=== PATIENT | male | born 1960 | race Caucasian/White ===

== ENCOUNTER → 2018-02-27 21:30 | Outpatient (CLI) | payer OTHER, SELFPAY | PROVIDERS: Referring Provider Nurse Practitioner; Visit Provider Nurse Practitioner | DX: R39.15 Urgency of urination (principal) | CPT/HCPCS: 87086 ==

== ENCOUNTER → 2018-04-02 08:33 | Outpatient (CLI) | payer OTHER, SELFPAY ==
[2018-02-27 17:50] VITALS: BMI 31.3
[2018-03-31 13:47] LABS: Absolute Lymphocyte Count 1.17 X10^3/ul (0.83-4.51); Absolute Neutrophil Count 5.2 X10^3/uL (2.0-7.7); Basophil# 0.01 X10^3/uL; Basophil% 0.1 % (0-1); Eosinophil# 0.03 X10^3/uL; Eosinophils% 0.4 % (0-5); Hematocrit 52.5 % (40-54); Lymphocyte # 1.17 X10^3/ul (4.0); Lymphocyte % 16.7 % (19-41); Mean Corpuscular Hgb 34.5 pg (27.0-32.0); Mean Corpuscular Volume 98.3 fL (80-94); Mean Platelet Vol. 10.6 fl (6.2-12.0); Monocyte# 0.59 X10^3/uL; Monocyte% 8.4 % (0-10); Neutrophil % 74.1 % (47-70); Platelet Count 164 K/mm3 (150-450); RBC Distribution Width CV 13.7 % (11.6-14.6); RBC Distribution Width SD 49.6 fl (35.1-43.9); Red Blood Count 5.34 M/mm3 (4.6-6.2)
[2018-03-31 13:54] LABS: ALB/GLOB Ratio 1.1 RATIO (0.9-2.4); AST(SGOT) 34 U/L (15-37); Alanine Aminotransfer ALT/SGPT 45 U/L (16-61); Albumin, Serum 3.8 g/dL (3.2-5.0); Alkaline Phosphatase 39 U/L (45-117); Anion Gap 8 (5-15); BUN 16 mg/dL (7-18); Calcium,Total 8.8 mg/dL (8.5-10.1); Chloride 101 mmol/L (98-107); Cholesterol 161 mg/dL (200); Creatinine, Serum 1.14 mg/dL (0.70-1.30); EST Glomerular Filtration Rate 71 mL/min (>60); Est Glom Filt Rate - Afr Amer 85 mL/min (>60); Globulin 3.6 g/dL (2.2-4.2); Glucose 111 mg/dL (74-106); High Density Lipoprotein 43 mg/dL; Potassium 3.3 mmol/L (3.5-5.1); Protein, Total 7.4 g/dL (6.4-8.2); Sodium Level 138 mmol/L (136-145); Triglycerides 124 mg/dL; Very Low Density Lipoprotein 25 mg/dL (5-40)
[2018-03-31 14:49] LABS: Hemoglobin 18.4 g/dl (13.0-16.5); POSITIVE COUNT NO; POSITIVE DIFFERENTIAL NO; POSITIVE MORPHOLOGY NO
[2018-04-04 13:03] LABS: PSA, Total 3.3 ng/mL (0.0-4.0); Testosterone Free 22.4 pg/mL (7.2-24.0)
== END ==
PROVIDERS: Referring Provider Nurse Practitioner; Visit Provider Nurse Practitioner
DX: E29.1 Testicular hypofunction (principal); E78.5 Hyperlipidemia, unspecified
CPT/HCPCS: 80053; 80061; 84153; 84402; 85025

== ENCOUNTER → 2018-06-02 14:08 | Outpatient (CLI) | payer OTHER, SELFPAY ==
[2018-06-02 10:00] VITALS: BMI 31.3
[2018-06-02 14:21] LABS: Absolute Lymphocyte Count 1.52 X10^3/ul (0.83-4.51); Basophil# 0.02 X10^3/uL; Basophil% 0.2 % (0-1); Eosinophil# 0.06 X10^3/uL; Eosinophils% 0.7 % (0-5); Hematocrit 53.7 % (40-54); Lymphocyte # 1.52 X10^3/ul (4.0); Lymphocyte % 18.5 % (19-41); Mean Corp Hgb Conc 33.9 g/gl (32-36); Mean Corpuscular Hgb 34.1 pg (27.0-32.0); Mean Corpuscular Volume 100.8 fL (80-94); Mean Platelet Vol. 10.9 fl (6.2-12.0); Monocyte# 0.62 X10^3/uL; Monocyte% 7.6 % (0-10); Neutrophil # 5.96 X10^3/uL (2.7-7.7); Neutrophil % 72.6 % (47-70); Platelet Count 181 K/mm3 (150-450); RBC Distribution Width CV 13.9 % (11.6-14.6); RBC Distribution Width SD 51.6 fl (35.1-43.9); Red Blood Count 5.33 M/mm3 (4.6-6.2); White Blood Count 8.2 K/mm3 (4.4-11.0)
[2018-06-02 14:46] LABS: Hemoglobin 18.2 g/dl (13.0-16.5); POSITIVE COUNT NO; POSITIVE DIFFERENTIAL NO; POSITIVE MORPHOLOGY NO
[2018-06-06 13:22] LABS: PSA, Total 2.3 ng/mL (0.0-4.0); Testosterone Free 9.2 pg/mL (7.2-24.0)
--- OUTSIDE RECORDS SUMMARY | 2018-08-06 10:26 | XMS RPT_ITS ---
:1960 Author Organization OHIP Care Team Providers Name Role Phone Danial Doss Referring Unavailable Danial Doss Primary Care Unavailable Andrea De Luna Attending Unavailable Jed Pickett Attending Unavailable Danial Doss Referring Unavailable Danial Doss Primary Care Unavailable AYDE CURIEL Attending Unavailable Danial Doss Referring Unavailable Danial Doss Primary Care Unavailable AYDE CURIEL Attending Unavailable Danial Doss Referring Unavailable Danial Doss Primary Care Unavailable Connolly, Kala HEARING AID ASSEMBLY SUPERVISOR-C Attending Unavailable Connolly, Kala HEARING AID ASSEMBLY SUPERVISOR-C Referring Unavailable Connolly, Kala HEARING AID ASSEMBLY SUPERVISOR-C Attending Unavailable Connolly, Kala HEARING AID ASSEMBLY SUPERVISOR-C Referring Unavailable Connolly, Kala HEARING AID ASSEMBLY SUPERVISOR-C Attending Unavailable Connolly, Kala HEARING AID ASSEMBLY SUPERVISOR-C Referring Unavailable PROBLEMS PROBLEMS DATE TYPE CONDITION / CODE ATTENDING STATUS SOURCE 06/04/2018 Unknown 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, 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 / Kala HEARING AID ASSEMBLY SUPERVISOR-C Community E29.1(ICD-10) Hospital Repository 04/02/2018 Unknown E78.5 - Connolly, Active [place] Hyperlipidemia, Kala HEARING AID ASSEMBLY SUPERVISOR-C Community unspecified / Hospital E78.5(ICD-10) Repository 02/28/2018 Unknown R39.15 - Urgency Dav, Active [place] of urination / Kala HEARING AID ASSEMBLY SUPERVISOR-C Community R39.15(ICD-10) Hospital Repository 01/17/2018 Admitting Testicular AYDE CURIEL [facility] Diagnosis hypofunction / System E29.1(ICD-10) Repository 01/17/2018 Admitting Elevated prostate AYDE CURIEL [facility] Diagnosis specific antigen System [PSA] / Repository R97.20(ICD-10) 09/08/2017 Admitting Palpitations / Costantini, [facility] Diagnosis R00.2(ICD-10) [place] System Repository 09/08/2017 Admitting Paroxysmal atrial Costantini, [facility] Diagnosis fibrillation / [place] System I48.0(ICD-10) Repository 09/02/2017 Admitting Hypokalemia / Roter, [place] Diagnosis E87.6(ICD-10) System Repository 09/02/2017 Admitting Hyperlipidemia, Roter, [place] Diagnosis unspecified / System E78.5(ICD-10) Repository 09/02/2017 Admitting Essential [employer] Diagnosis (primary) System hypertension / Repository I10(ICD-10) 09/02/2017 Admitting Acquired absence [facility]er, [place] Diagnosis of other specified System parts of digestive Repository tract / Z90.49(ICD-10) 09/02/2017 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 Repository / Z79.52(ICD-10) 09/02/2017 Admitting care home [employer] Diagnosis (current) use of System aspirin / Repository Z79.82(ICD-10) 09/02/2017 Admitting Personal history [employer] Diagnosis of nicotine System dependence / Repository Z87.891(ICD-10) 09/02/2017 Admitting Cardiac [facility]er, [place] Diagnosis arrhythmia, System unspecified / Repository I49.9(ICD-10) PROCEDURES PROCEDURES No Procedure Records FoundRESULTS RESULTS OFFICE VISIT Observed: 06/04/2018 Status: F Source: [place] 8:37 PM [facility] [place] [facility] [address] [place] [address] OFFICE VISIT Date of Service: 06/02/18 MR#: [id number] Acct: [id number] Name: DERIK VOSS Rep #: [id number] : 1960 Provider: PHYLLIS Connolly Age/Sex: 58/M Location: [facility] Status: Signed Intake Vital Signs06/02/18 Body Mass Index (BMI) 31.3 Intake Visit Reasons: TESTOSTERONE BW Chief Complaint: productive cough in the am Allergies No Known Allergies Allergy (Verified 10/05/17 18:13) Medications aspirin 81 mg chewable tablet 81 mg PO QDAY 10/05/17 [History Confirmed 10/05/17] atorvastatin 20 mg tablet 20 mg PO QDAY 10/05/17 [History Confirmed 10/05/17] lisinopril 10 mg tablet 10 mg PO QDAY 10/05/17 [History Confirmed 10/05/17] ciprofloxacin 500 mg tablet 500 mg PO BID #14 tab 02/27/18 [Rx Confirmed 02/27/18] tamsulosin 0.4 mg capsule 0.4 mg PO DAILY #30 cap 02/27/18 [Rx Confirmed 02/27/18] Office Meds testosterone cypionate Performing Provider: FREDDY Rubalcava Administered by: Thi Haider on 06/02/18 10:00 Dose Route Admin Location Lot Number Expiration Date NDC Hydraulic Plumber 100 mg IM R ARM [id number] 12/14/19 7563-5519-03 [facility] Assessment AND Plan Orders Orders: Medications Discontinued: testosterone cypionate Discontinued Reason: Uhxryt547 mg (0.5 mL) IM ONCE #1 0RF E29.1 Medication has been Documented as given 06/04/182036 <Electronically signed by Kala HAYES> Date Kala HAYES CC: CBC W/DIFF, AUTOMATED Collected: 06/02/2018 Status: F Source: [place] 9:50 AM [facility] [place] TYPE CODE TESTS RESULT OUT OF RANGE REFERENCE UNITS LAB L100.1000 4.4-11.0 K/mm3 Normal WBC 8.2 LAB L100.1200 4.6-6.2 M/mm3 Normal RBC 5.33 LAB L100.1300 13.0-16.5 g/dl High alert HGB 18.2 Result Comment: RESULTS CALLED TO KALA CONNOLLY 06/02/18 1445 Marcia Carroll. REPORT READ BACK BY SAME. LAB L100.1400 40-54 % Normal HCT 53.7 LAB L100.1500 80-94 fL High MCV 100.8 LAB L100.1600 27.0-32.0 pg High MCH 34.1 LAB L100.1700 32-36 g/gl Normal MCHC 33.9 LAB L100.1810 11.6-14.6 % Normal RDW CV 13.9 LAB L100.1820 35.1-43.9 fl High RDW SD 51.6 LAB L100.1900 150-450 K/mm3 Normal PLT 181 LAB L100.2000 6.2-12.0 fl Normal MPV 10.9 LAB L100.2100 47-70 % High NEUT% 72.6 LAB L100.2200 19-41 % Low LY% 18.5 LAB L100.2300 0-10 % Normal MONO% 7.6 LAB L100.2400 0-5 % Normal EO% 0.7 LAB L100.2500 0-1 % Normal BASO% 0.2 LAB L100.2550 0.0-0.9 % Normal IM GRAN % 0.400 Result Comment: IG% - Immature Granulocytes (promyelocytes, myelocytes and metamyelocytes) > 1% indicates that a LEFT SHIFT is Present. LAB L100.2620 2.0-7.7 X10 3/uL Normal Absolute Neut 6.0 LAB L100.2720 0.83-4.51 X10 3/ul Normal Absolute Lymph 1.52 Performed By: #### L100.0100 #### [facility] [address] [place], [address] PSA TOTAL (RFLX Collected: 06/02/2018 Status: F Source: [place] FREE) 9:50 AM [facility] [place] TYPE CODE TESTS RESULT OUT OF RANGE REFERENCE UNITS LAB L3110.0200 0.0-4.0 ng/mL Normal PSA, 2.3 TOTAL Result Comment: Kush ECLIA methodology. According to the [place] [employer], Serum PSA should decrease and remain at undetectable levels after radical prostatectomy. The AUA defines biochemical recurrence as an initial PSA value 0.2 ng/mL or greater followed by a subsequent confirmatory PSA value 0.2 ng/mL or greater. Values obtained with different assay methods or kits cannot be used interchangeably. Results cannot be interpreted as absolute evidence of the presence or absence of malignant disease. LAB L3110.0450 . Normal COMMENT Comment Result Comment: The percent free PSA is performed on a reflex basis only when the total PSA is between 4.0 and 10.0 ng/mL. Performed By: #### L3110.0100, L3400.4800 #### [facility] (refer to report for specific site) refer to report for address and phone number TESTOSTERONE FREE Collected: 06/02/2018 Status: F Source: [place] 9:50 AM [facility] [place] TYPE CODE TESTS RESULT OUT OF RANGE REFERENCE UNITS LAB L3400.4800 7.2-24.0 pg/mL Normal TEST FR 9.2 [id number] Result Comment: Performed at: - [facility] [id number] Foreign Car Mechanic: Bryant Worthington PhD, Phone: [phone] Performed at: - [facility] [address] [id number] Foreign Car Mechanic: Kiley Boswell MD, Phone: [phone] Performed By: #### L3110.0100, L3400.4800 #### [facility] (refer to report for specific site) refer to report for address and phone number OFFICE VISIT Observed: 05/17/2018 Status: F Source: [place] 1:53 PM [facility] [place] [facility] [address] [place] [address] OFFICE VISIT Date of Service: 05/16/18 MR#: [id number] Acct: [id number] Name: DERIK VOSS Rep #: [id number] : 1960 Provider: PHYLLIS Connolly Age/Sex: 58/M Location: [facility] Status: Signed Intake Intake Visit Reasons: TEST INJ #3 Chief Complaint: productive cough in the am Allergies No Known Allergies Allergy (Verified 10/05/17 18:13) Medications aspirin 81 mg chewable tablet 81 mg PO QDAY 10/05/17 [History Confirmed 10/05/17] atorvastatin 20 mg tablet 20 mg PO QDAY 10/05/17 [History Confirmed 10/05/17] lisinopril 10 mg tablet 10 mg PO QDAY 10/05/17 [History Confirmed 10/05/17] ciprofloxacin 500 mg tablet 500 mg PO BID #14 tab 02/27/18 [Rx Confirmed 02/27/18] tamsulosin 0.4 mg capsule 0.4 mg PO DAILY #30 cap 02/27/18 [Rx Confirmed 02/27/18] Office Meds testosterone cypionate Performing Provider: FREDDY Rubalcava Administered by: Thi Haider on 05/16/18 19:12 Dose Route Admin Location Lot Number Expiration Date NDC Hydraulic Plumber 100 mg IM R ARM [id number] 12/14/19 3682-3537-68 [employer] Assessment AND Plan Orders Orders: Medications Discontinued: testosterone cypionate Discontinued Reason: [id number] mg (0.5 mL) IM ONCE #1 0RF E29.1 Medication has been Documented as given 05/17/18 1353 <Electronically signed by Kala HAYES> Date Kala HAYES CC: OFFICE VISIT Observed: 04/26/2018 Status: F Source: [place] 7:58 PM [facility] [place] [facility] [address] [place] [address] OFFICE VISIT Date of Service: 04/26/18 MR#: [id number] Acct: [id number] Name: MANIDERIK Rep #: [id number] : 1960 Provider: PHYLLIS Connolly Age/Sex: 58/M Location: [facility] Status: Signed Intake Intake Visit Reasons: TEST INJ #2 Chief Complaint: productive cough in the am Allergies No Known Allergies Allergy (Verified 10/05/17 18:13) Medications aspirin 81 mg chewable tablet 81 mg PO QDAY 10/05/17 [History Confirmed 10/05/17] atorvastatin 20 mg tablet 20 mg PO QDAY 10/05/17 [History Confirmed 10/05/17] lisinopril 10 mg tablet 10 mg PO QDAY 10/05/17 [History Confirmed 10/05/17] ciprofloxacin 500 mg tablet 500 mg PO BID #14 tab 02/27/18 [Rx Confirmed 02/27/18] tamsulosin 0.4 mg capsule 0.4 mg PO DAILY #30 cap 02/27/18 [Rx Confirmed 02/27/18] Office Meds testosterone cypionate Performing Provider: FREDDY Rubalcava Administered by: Thi Haider on 04/26/18 14:29 Dose Route Admin Location Lot Number Expiration Date NDC Hydraulic Plumber 100 mg IM r arm [id number] 12/14/19 8806-4742-58 [email or web address]. Assessment AND Plan Orders Orders: Medications Discontinued: testosterone cypionate Discontinued Reason: [id number] mg (0.5 mL) IM ONCE #1 0RF E29.1 Medication has been Documented as given 04/26/181957 <Electronically signed by Kala HAYES> Date Kala HAYES CC: OFFICE VISIT Observed: 04/13/2018 Status: F Source: [place] 7:38 PM [facility] [place] [facility] [address] [place] [address] OFFICE VISIT Date of Service: 04/13/18 MR#: [id number] Acct: [id number] Name: DERIK VOSS Rep #: [id number] : 1960 Provider: PHYLLIS Connolly Age/Sex: 58/M Location: [facility] Status: Signed Intake Intake Visit Reasons: TEST INJ #1 Chief Complaint: productive cough in the am Allergies No Known Allergies Allergy (Verified 10/05/17 18:13) Medications aspirin 81 mg chewable tablet 81 mg PO QDAY 10/05/17 [History Confirmed 10/05/17] atorvastatin 20 mg tablet 20 mg PO QDAY 10/05/17 [History Confirmed 10/05/17] lisinopril 10 mg tablet 10 mg PO QDAY 10/05/17 [History Confirmed 10/05/17] ciprofloxacin 500 mg tablet 500 mg PO BID #14 tab 02/27/18 [Rx Confirmed 02/27/18] tamsulosin 0.4 mg capsule 0.4 mg PO DAILY #30 cap 02/27/18 [Rx Confirmed 02/27/18] Office Meds testosterone cypionate Performing Provider: FREDDY Rubalcava Administered by: Thi Haider on 04/13/18 16:12 Dose Route Admin Location Lot Number Expiration Date NDC Hydraulic Plumber 100 mg IM R ARM [id number] 12/14/19 5679-2519-72 [facility]. Assessment AND Plan Orders Orders: Medications Discontinued: testosterone cypionate Discontinued Reason: [id number] mg (0.5 mL) IM ONCE #1 0RF E29.1 Medication has been Documented as given 04/13/18 1938 <Electronically signed by Kala HAYES> Date Kala HAYES CC: COMPREHENSIVE METABOLIC Collected: 03/31/2018 Status: F Source: [place] 1:33 PM [facility] [place] TYPE CODE TESTS RESULT OUT OF RANGE REFERENCE UNITS LAB L501.0100 74-106 mg/dL High GLU 111 Result Comment: Fasting Glucose result from 100 to 125 mg/dL suggests IMPAIRED HOMEOSTASIS per A.D.A. criteria. Please note revised GLUCOSE reference range effective 2017. LAB L501.1000 7-18 mg/dL Normal BUN 16 LAB L501.1100 0.70-1.30 mg/dL Normal CREAT,SERUM 1.14 Result Comment: The validity of the calculated GFR AND GFRAA in patients over 70 years has not been determined. Clinical correlation is essential. LAB L501.1110 >60 mL/min Normal EST GFR 71 Result Comment: Non- GFR Calc LAB L501.1115 >60 mL/min Normal EST GFR - AA 85 Result Comment: GFR Calc LAB L501.1300 10-20 RATIO Normal BUN/CRE 14.0 LAB L501.1500 6.4-8.2 g/dL T Normal PROT 7.4 LAB L501.1800 3.2-5.0 g/dL Normal ALB 3.8 LAB L501.1950 2.2-4.2 g/dL Normal GLOB 3.6 LAB L501.2000 0.9-2.4 RATIO Normal A/G 1.1 LAB L501.2200 8.5-10.1 mg/dL CA Normal 8.8 LAB L501.4100 15-37 U/L Normal AST 34 LAB L501.4305 45-117 U/L Low ALK P 39 LAB L501.4405 16-61 U/L Normal ALT 45 LAB L501.4600 0.20-1.00 mg/dL T Normal BILI 0.50 LAB L501.5300 136-145 mmol/L NA Normal 138 LAB L501.5600 3.5-5.1 mmol/L Low K 3.3 LAB L501.5900 98-107 mmol/L CL Normal 101 LAB L501.6100 21.0-32.0 mmol/L Normal CO2 29.0 LAB L501.6200 5-15 Normal GAP 8 Performed By: #### L500.4050, L500.4100 #### [facility] [address] [place], [address] LIPID PROFILE Collected: 03/31/2018 Status: F Source: [place] 1:33 PM [facility] [place] TYPE CODE TESTS RESULT OUT OF RANGE REFERENCE UNITS LAB L501.4900 200 mg/dL Normal CHOL 161 Result Comment: <200 mg/dL Desirable 200-240 mg/dL Borderline >240 mg/dL High Risk LAB L501.5000 mg/dL Normal TRIG 124 Result Comment: The drugs N-Acetylcysteine and Metamizole may falsely depress this assay. Serum Triglycerides Reference Interval Normal <150 mg/dL Borderline high 150 - 199 mg/dL High 200 - 499 mg/dL Very High > or = 500 mg/dL LAB L501.6400 mg/dL Normal HDL 43 Result Comment: The drugs N-Acetylcysteine and Metamizole may falsely depress this assay. Reference Range HDL <40 mg/dL Low HDL Cholesterol HDL >or= 60 mg/dL High HDL Cholesterol LAB L501.6500 0-130 mg/dL Normal LDL 93 LAB L501.6600 5-40 mg/dL Normal VLDL 25 Performed By: #### L500.4050, L500.4100 #### [facility] [address] [place], [place], [id number] CBC W/DIFF, AUTOMATED Collected: 03/31/2018 Status: F Source: [place] 1:33 PM [facility] [place] TYPE CODE TESTS RESULT OUT OF RANGE REFERENCE UNITS LAB L100.1000 4.4-11.0 K/mm3 Normal WBC 7.0 LAB L100.1200 4.6-6.2 M/mm3 Normal RBC 5.34 LAB L100.1300 13.0-16.5 g/dl High alert HGB 18.4 Result Comment: RESULTS CALLED TO KALA CONNOLLY 03/31/18 1449 Marcia Carroll. REPORT READ BACK BY SAME. LAB L100.1400 40-54 % Normal HCT 52.5 LAB L100.1500 80-94 fL High MCV 98.3 LAB L100.1600 27.0-32.0 pg High MCH 34.5 LAB L100.1700 32-36 g/gl Normal MCHC 35.0 LAB L100.1810 11.6-14.6 % Normal RDW CV 13.7 LAB L100.1820 35.1-43.9 fl High RDW SD 49.6 LAB L100.1900 150-450 K/mm3 Normal PLT 164 LAB L100.2000 6.2-12.0 fl Normal MPV 10.6 LAB L100.2100 47-70 % High NEUT% 74.1 LAB L100.2200 19-41 % Low LY% 16.7 LAB L100.2300 0-10 % Normal MONO% 8.4 LAB L100.2400 0-5 % Normal EO% 0.4 LAB L100.2500 0-1 % Normal BASO% 0.1 LAB L100.2550 0.0-0.9 % Normal IM GRAN % 0.300 Result Comment: IG% - Immature Granulocytes (promyelocytes, myelocytes and metamyelocytes) > 1% indicates that a LEFT SHIFT is Present. LAB L100.2620 2.0-7.7 X10 3/uL Normal Absolute Neut 5.2 LAB L100.2720 0.83-4.51 X10 3/ul Normal Absolute Lymph 1.17 Performed By: #### L100.0100 #### [facility] [place], [address] PSA TOTAL (RFLX Collected: 03/31/2018 Status: F Source: [place] FREE) 1:33 PM [facility] [place] TYPE CODE TESTS RESULT OUT OF RANGE REFERENCE UNITS LAB L3110.0200 0.0-4.0 ng/mL Normal PSA, 3.3 TOTAL Result Comment: Kush ECLIA methodology. According to the [place] [employer], Serum PSA should decrease and remain at undetectable levels after radical prostatectomy. The AUA defines biochemical recurrence as an initial PSA value 0.2 ng/mL or greater followed by a subsequent confirmatory PSA value 0.2 ng/mL or greater. Values obtained with different assay methods or kits cannot be used interchangeably. Results cannot be interpreted as absolute evidence of the presence or absence of malignant disease. LAB L3110.0450 . Normal COMMENT Comment Result Comment: The percent free PSA is performed on a reflex basis only when the total PSA is between 4.0 and 10.0 ng/mL. Performed By: #### L3110.0100, L3400.4800 #### [facility] (refer to report for specific site) refer to report for address and phone number TESTOSTERONE FREE Collected: 03/31/2018 Status: F Source: [place] 1:33 PM [facility] [place] TYPE CODE TESTS RESULT OUT OF RANGE REFERENCE UNITS LAB L3400.4800 7.2-24.0 pg/mL Normal TEST FR 22.4 189304 Result Comment: Performed at: [facility] [id number] Foreign Car Mechanic: Bryant Worthington PhD, Phone: [phone] Performed at: - [facility] [id number] Foreign Car Mechanic: Kiley Boswell MD, Phone: [phone] Performed By: #### L3110.0100, L3400.4800 #### [facility] (refer to report for specific site) refer to report for address and phone number OFFICE VISIT Observed: 03/31/2018 Status: F Source: [place] 12:43 PM [facility] [place] [facility] [place] [address] [place] [address] OFFICE VISIT Date of Service: 03/31/18 MR#: [id number] Acct: [id number] Name: DERIK VOSS Rep #: [id number] : 1960 Provider: PHYLLIS Connolly Age/Sex: 58/M Location: [facility] Status: Signed Intake Vital Signs03/31/18 Blood Pressure 130/70 H Intake Visit Reasons: TESTOSTERONE BW Allergies No Known Allergies Allergy (Verified 10/05/17 18:13) Medications aspirin 81 mg chewable tablet 81 mg PO QDAY 10/05/17 [History Confirmed 10/05/17] atorvastatin 20 mg tablet 20 mg PO QDAY 10/05/17 [History Confirmed 10/05/17] lisinopril 10 mg tablet 10 mg PO QDAY 10/05/17 [History Confirmed 10/05/17] ciprofloxacin 500 mg tablet 500 mg PO BID #14 tab 02/27/18 [Rx Confirmed 02/27/18] tamsulosin 0.4 mg capsule 0.4 mg PO DAILY #30 cap 02/27/18 [Rx Confirmed 02/27/18] PFSH Medical History Humphries's esophagus determined by endoscopy (Acute) Colon polyp (Acute) Hypercholesterolemia (Acute) Normal cardiac stress test (Acute) Hypertension (Chronic) Surgical History H/O cardiac catheterization (Acute) Hx of cholecystectomy (Acute) Hx of vasectomy (Acute) Family History Father CAD (coronary artery disease) Diabetes Heart disease Hypertension Myocardial infarction Grandfather CAD (coronary artery disease) Cancer Heart disease Hypertension Aunt CAD (coronary artery disease) Heart disease Hypertension Myocardial infarction Sudden cardiac Brother CAD (coronary artery disease) Heart disease Hypertension Myocardial infarction Thyroid disorder Uncle CAD (coronary artery disease) Heart disease Hypertension Myocardial infarction Grandmother CAD (coronary artery disease) Heart disease Hypertension Sudden cardiac Myocardial infarction Mother Diabetes Sister Thyroid disorder Social History housing: house number of children: 4 current occupational status: employed current occupation: [employer] current occupational exposures/hazards: No Smoking Status: Former smoker how long ago did patient quit smokin second hand exposure: No alcohol intake: current details: 2-3 x per week 2-3 vodka substance use type: does not use well-balanced diet: rarely or never caffeine: Yes eating out: 4 or more times/week during the past year weight has: increased > 10 lbs what type of physical activity do you participate in: none HPI HPI (General) HPI HPI: DERIK VOSS, is a 58 M who presents to the office today for Assessment AND Plan Orders Orders: Coding Level of Care Code No Charge 03/31/18 1243 <Electronically signed by Kala HAYES> Date Kala HAYES CC: OFFICE VISIT Observed: 03/19/2018 Status: F Source: [place] 10:07 PM [facility] [place] [facility] [address] [place] [address] OFFICE VISIT Date of Service: 03/19/18 MR#: [id number] Acct: [id number] Name: DERIK VOSS Rep #: [id number] : 1960 Provider: PHYLLIS Connolly Age/Sex: 58/M Location: [facility] Status: Signed Intake Intake Visit Reasons: TEST INJ #3 Chief Complaint: productive cough in the am Allergies No Known Allergies Allergy (Verified 10/05/17 18:13) Medications aspirin 81 mg chewable tablet 81 mg PO QDAY 10/05/17 [History Confirmed 10/05/17] atorvastatin 20 mg tablet 20 mg PO QDAY 10/05/17 [History Confirmed 10/05/17] lisinopril 10 mg tablet 10 mg PO QDAY 10/05/17 [History Confirmed 10/05/17] ciprofloxacin 500 mg tablet 500 mg PO BID #14 tab 02/27/18 [Rx Confirmed 02/27/18] tamsulosin 0.4 mg capsule 0.4 mg PO DAILY #30 cap 02/27/18 [Rx Confirmed 02/27/18] Office Meds testosterone cypionate Performing Provider: FREDDY Rubalcava Administered by: Julia Stark on 03/19/18 19:16 Dose Route Admin Location Lot Number Expiration Date NDC Hydraulic Plumber 100 mg IM left arm [id number] 12/14/19 8742-2422-41 [facility]. Assessment AND Plan Orders Orders: Medications Discontinued: testosterone cypionate Discontinued Reason: Combkc474 mg (0.5 mL) IM ONCE #1 0RF E29.1 Medication has been Documented as given 11/05/18 2207 <Electronically signed by Kala HAYES> Date Kala HAYES CC: OFFICE VISIT Observed: 03/08/2018 Status: F Source: [place] 9:08 PM [facility] [place] [facility] [address] [place] [address] OFFICE VISIT Date of Service: 03/08/18 MR#: [id number] Acct: [id number] Name: DERIK VOSS Rep #: [id number] : 1960 Provider: PHYLLIS Connolly Age/Sex: 58/M Location: [facility] Status: Signed Intake Intake Visit Reasons: TEST INJ? (HE'S NOT ON THE SHEET?) Chief Complaint: productive cough in the am Allergies No Known Allergies Allergy (Verified 10/05/17 18:13) Medications aspirin 81 mg chewable tablet 81 mg PO QDAY 10/05/17 [History Confirmed 10/05/17] atorvastatin 20 mg tablet 20 mg PO QDAY 10/05/17 [History Confirmed 10/05/17] lisinopril 10 mg tablet 10 mg PO QDAY 10/05/17 [History Confirmed 10/05/17] ciprofloxacin 500 mg tablet 500 mg PO BID #14 tab 02/27/18 [Rx Confirmed 02/27/18] tamsulosin 0.4 mg capsule 0.4 mg PO DAILY #30 cap 02/27/18 [Rx Confirmed 02/27/18] Office Meds testosterone cypionate Performing Provider: FREDDY Rubalcava Administered by: Julia Stark on 03/08/18 17:45 Dose Route Admin Location Lot Number Expiration Date NDC Hydraulic Plumber 200 mg IM right arm [id number] 12/14/19 6462-4673-47 [facility]. Assessment AND Plan Orders Orders: Medications Discontinued: testosterone cypionate Discontinued Reason: [id number] mg (0.5 mL) IM ONCE #1 0RF E29.1 Medication has been Documented as given 03/08/182107 <Electronically signed by Kala Connolly HEARING AID ASSEMBLY SUPERVISOR-C> Date Kala HAYES CC: OFFICE VISIT Observed: 02/27/2018 Status: F Source: [place] 10:46 PM [facility] [place] [place] [facility] [address] [place] [address] OFFICE VISIT Date of Service: 02/27/18 MR#: [id number] Acct: [id number] Name: DERIK VSOS Rep #: [id number] : 1960 Provider: PHYLLIS Connolly Age/Sex: 58/M Location: [facility] Status: Signed Intake Vital Signs02/27/18 Height 6 ft 02/27/18 Weight: 231 lb Intake Visit Reasons: REQUESTING CLEARANCE FOR COLON EGD Is patient in pain?: No Allergies No Known Allergies Allergy (Verified 10/05/17 18:13) Medications aspirin 81 mg chewable tablet 81 mg PO QDAY 10/05/17 [History Confirmed 10/05/17] atorvastatin 20 mg tablet 20 mg PO QDAY 10/05/17 [History Confirmed 10/05/17] lisinopril 10 mg tablet 10 mg PO QDAY 10/05/17 [History Confirmed 10/05/17] ciprofloxacin 500 mg tablet 500 mg PO BID #14 tab 02/27/18 [Rx Confirmed 02/27/18] tamsulosin 0.4 mg capsule 0.4 mg PO DAILY #30 cap 02/27/18 [Rx Confirmed 02/27/18] PFSH Medical History Humphries's esophagus determined by endoscopy (Acute) Colon polyp (Acute) Hypercholesterolemia (Acute) Normal cardiac stress test (Acute) Hypertension (Chronic) Surgical History H/O cardiac catheterization (Acute) Hx of cholecystectomy (Acute) Hx of vasectomy (Acute) Family History Father CAD (coronary artery disease) Diabetes Heart disease Hypertension Myocardial infarction Grandfather CAD (coronary artery disease) Cancer Heart disease Hypertension Aunt CAD (coronary artery disease) Heart disease Hypertension Myocardial infarction Sudden cardiac Brother CAD (coronary artery disease) Heart disease Hypertension Myocardial infarction Thyroid disorder Uncle CAD (coronary artery disease) Heart disease Hypertension Myocardial infarction Grandmother CAD (coronary artery disease) Heart disease Hypertension Sudden cardiac Myocardial infarction Mother Diabetes Sister Thyroid disorder Social History housing: house number of children: 4 current occupational status: employed current occupation: [employer] current occupational exposures/hazards: No Smoking Status: Former smoker how long ago did patient quit smokin second hand exposure: No alcohol intake: current details: 2-3 x per week 2-3 vodka substance use type: does not use well-balanced diet: rarely or never caffeine: Yes eating out: 4 or more times/week during the past year weight has: increased > 10 lbs what type of physical activity do you participate in: none HPI HPI (General) HPI HPI: DERIK VOSS, is a 58 M who presents to the office today For a Physical . He is having a colonoscopy and a EGD done on the same day Apr 13 Also c/o urgency of urinating and retention. Will try treating for a kidney stone blood in the urine and no infection noted will also try him on tamsulosin for the spasms with urination. Also wants to start getting testosterone inj here # 3 injection to start in 2 weeks WE can start again today . We originally started then here but her wentot a urologist and he wanted him to stay with him. He also noted the PSA went down once he started the injections ROS Const Constitutional: No anorexia, body ache, chills, excessive sweating, fatigue, fever(s), frequent falls, headache(s), decreased energy, malaise, night sweats, snoring, weakness, weight change, sleep problems, abnormal sleep pattern, change in appetite or other Eyes Eyes: No blurry vision, change in vision, double vision, discharge, dry eyes, bulging eyes, floaters, visual disturbances, eye pain, light sensitivity, spots in vision, tunnel vision or other ENT ENT: No headache(s), abnormal hearing, ear pain, ear discharge, ear pressure, hearing loss, tinnitus, dizziness/vertigo, balance problems, nosebleed/epistaxis, nasal congestion, nasal obstruction, nose pain, sinus pressure, sinus pain, nasal discharge, post nasal drip, facial pain, dental pain, dry mouth, difficulty swallowing, bad breath, hoarseness, lip swelling, mouth lesions, mouth pain, neck pain, sore throat, tongue swelling, throat swelling or other Resp Respiratory: No snoring, cough, change in phlegm color, chest congestion, excessive phlegm production, hemoptysis, pain on inspiration, shortness of breath, pain with cough, stridor, wheezing or other Cardio Cardiology: No excessive sweating, chest pain at rest, chest pain with exertion, leg pain with exertion, shortness of breath, dyspnea on exertion, generalized swelling, irregular heart rhythm, lightheadedness, orthopnea, radiating jaw, neck or arm pain, fast heart rate, slow heart rate, palpitations or other Gastro GI: No other, No Difficulty Swallowing, No abdominal pain, No belching, No bloating, No change in bowel habits, No change in stool character, No coffee ground emesis, No constipation, No cramping, No diarrhea, No heartburn, No feeling full early, No excessive flatus, No incontinent of stools, No Vomiting blood/hematemesis, No Blood in stool, No loose stools, No Black,tarry stools, No nausea/dyspepsia, No pain with swallowing, No vomiting, No hemorrhoids, No rectal pain Genitourinary: Positive for urinary frequency and other (urinary urgency); no difficulty urinating, burning urination, painful urination, urinary urgency or blood in urine Musc Musculoskeletal: No neck pain, abnormal walking, joint pain, back pain, deformity, joint swelling, limited range of motion, loss of height, muscle cramps, muscle weakness, decreased muscle mass, body aches, numbness, radiating pain into limb, stiffness, tingling or other Skin Skin: No acne, hair loss, change in hair, nail changes, boil, change in skin color, dry skin, redness, excessive hair growth, yellowing of the skin, lesions, itching, rash, skin pain, skin ulcer, sores, skin swelling, wounds or other Breast Breast: No other Neuro Neurology: No frequent falls, headache(s), weakness, visual disturbances, abnormal hearing, abnormal walking, numbness, tingling, abnormal movements, abnormal speech, behavioral changes, confusion, unsteady gait/balance, dizziness, lack of coordination, loss of vision, memory loss, restless legs, fainting, tremor(s) or other Psych Psychiatric: No abnormal sleep pattern, No change in appetite, No behavioral changes, No confusion, No memory loss, No lack of enjoyment, No anxiety, No depression, No difficulty concentrating, No hopelessness, No irritability, No mood swings, No panic attacks, No paranoia, No Thoughts of harming yourself/Others, No hallucinations, No other Endo Endo: No excessive sweating, No fatigue, No other Aller/Imm Allergy/Immunologic: No lip swelling, tongue swelling, throat swelling, wheezing or itchy eyes Exam Const Constitutional: Yes cooperative, Yes healthy appearing Orientation: Yes alert, awake and oriented x3 HENMT Head: Yes normocephalic Ear: Yes hearing grossly normal bilaterally Neck Neck: normal visual inspection Thyroid: thyroid normal Eyes General: Yes appearance normal, both eyes and all related structures Chest Chest palpation AND inspection: Yes normal inspection of the chest Resp Effort AND Inspection: No stridor Auscultation: Yes clear to auscultation bilaterally Cardio Palpitation: Yes normal PMI Rate: Yes regular rate Rhythm: Yes regular rhythm GI Inspection: Yes normal to inspection Auscultation: Yes normal bowel sounds Rectal Exam: No hemorrhoids Musc Cervical Spine: Yes cervical ROM normal Thoracic/Lumbar Spine: Yes thoracic and lumbar spine normal to inspection Skin General: no rashes or lesions noted Lesions: Yes no lesions Extrem General: Yes normal to inspection Neuro General: Yes alert and oriented x3 Motor: No weakness Psych Appearance: Positive grossly normal Mood: Positive congruent mood Affect: Positive normal affect Office Meds testosterone cypionate Performing Provider: FREDDY Rubalcava Administered by: FREDDY Rubalcava on 02/27/18 18:39 Dose Route Admin Location Lot Number Expiration Date [facility] Hydraulic Plumber 100 mg IM L deltoid [id number] 01/13/20 [address]2315-[address] ENOVACHEM MANUF Results [facility] Office Urine Color Carissa Last Edit by FREDDY Rubalcava on 02/27/18 18:13 Assessment AND Plan Problems 1. Humphries's esophagus determined by endoscopy K22.70 2. Adenomatous polyp of colon, unspecified part of colon D12.6 3. Low testosterone R79.89 4. Urgency of micturition R39.15 Patient Instructions Received an injection for Testosterone today Try to get the labs for Sept on the testoterone Any thing important from the urologist Will fill out form ad fax to Gastroenterology Orders Orders: Medications New: Discontinued: testosterone cypionate Discontinued Reason: [id number] mg (0.5 mL) IM ONCE #1 0RF E29.1 Medication has been Documented as given Coding Level of Care Code Off vis,est,level 3 Diagnoses Humphries's esophagus determined by endoscopy K22.70 Adenomatous polyp of colon, unspecified part of colon D12.6 Colon location: unspecified part of colon Colon polyp type: adenomatous Low testosterone R79.89 Urgency of micturition R39.15 02/27/18 2246 <Electronically signed by Kala HAYES> Date Kala HAYES CC: Observed: 02/27/2018 Status: F Source: [place] CULTURE, URINE 6:15 PM [facility] Urine Culture Culture exhibits no growth. Performed By: #### M100.0650 #### [facility] [place], [address] HEMOGLOBIN AND Collected: 01/17/2018 Status: F Source: [place] HEMATOCRIT 7:58 AM SYSTEM REPOSITORY TYPE CODE TESTS RESULT OUT OF RANGE REFERENCE UNITS LAB HGB 13.0-18.0 g/dL Normal Hemoglobin 16.5 LAB HCT 40.0-52.0 % Normal Hematocrit 47.3 Performed By: #### HGHCT, PSA3 #### [facility] [address] [place] [id number] PROSTATIC SPECIFIC AG- Collected: 01/17/2018 Status: F Source: [place] DIAGNOSTIC 7:58 AM SYSTEM REPOSITORY TYPE CODE TESTS RESULT OUT OF RANGE REFERENCE UNITS LAB 3PSA < 4.000 ng/mL Normal Prostatic 2.580 Specific Ag Result Comment: Testing performed on the [employer]underdata 5600 using an immunometric methodology. Results obtained by different methods should not be used interchangeably. Performed By: #### HGHCT, PSA3 #### [facility] [address] [place] [id number] TESTO,FREE/TOTAL-MALE Collected: Status: F Source: [place] 01/17/2018 7:58 AM HEALTH SYSTEM REPOSITORY TYPE CODE TESTS RESULT OUT OF REFERENCE UNITS RANGE LAB SHBGM 11-80 nmol/L SHBG 38 Result Comment: REFERENCE INTERVAL: Sex Hormone Binding Globulin Access complete set of age- and/or gender-specific reference intervals for this test in the [facility] ([facility]). LAB TFTMR 300-890 ng/dL Testosterone 769 Result Comment: REFERENCE INTERVAL: Testosterone, Adult Male Access complete set of age- and/or gender-specific reference intervals for this test in the [facility] ([facility]). LAB TFMC 47-244 pg/mL Testosterone, Free Calc 145 Result Comment: INTERPRETIVE INFORMATION: Testosterone, Free Tim Stage IV 35 - 169 pg/mL Tim Stage V 41 - 239 pg/mL The concentration of Free Testosterone is derived from a mathematical expression based on the constant for the binding of testosterone to Sex Hormone Binding Globulin (SHBG). Access complete set of age- and/or gender-specific reference intervals for this test in the [facility] ([facility]). LAB TCPT2 1.6-2.9 % Testosterone, % Free 1.9 Result Comment: Performed by [facility], [address] [place] [id number] [email or web address], Timoteo Shah MD - Lab. Director Performed By: #### TFTMO #### The performing lab is in the report. OFFICE VISIT Observed: 01/11/2018 Status: F Source: [place] 8:49 PM [facility] Family [address] [address] OFFICE VISIT Date of Service: 01/11/18 MR#: [id number] Acct: [id number] Name: DERIK VOSS Rep #: [id number] : 1960 Provider: PHYLLIS Connolly Age/Sex: 57/M Location: [facility] Status: Signed Intake Intake Visit Reasons: Kenelog Allergies No Known Allergies Allergy (Verified 10/05/17 18:13) Medications aspirin 81 mg chewable tablet 81 mg PO QDAY 10/05/17 [History Confirmed 10/05/17] atorvastatin 20 mg tablet 20 mg PO QDAY 10/05/17 [History Confirmed 10/05/17] lisinopril 10 mg tablet 10 mg PO QDAY 10/05/17 [History Confirmed 10/05/17] PFSH Medical History Hypercholesterolemia (Acute) Normal cardiac stress test (Acute) Hypertension (Chronic) Surgical History H/O cardiac catheterization (Acute) Hx of cholecystectomy (Acute) Hx of vasectomy (Acute) Family History Father CAD (coronary artery disease) Diabetes Heart disease Hypertension Myocardial infarction Grandfather CAD (coronary artery disease) Cancer Heart disease Hypertension Aunt CAD (coronary artery disease) Heart disease Hypertension Myocardial infarction Sudden cardiac Brother CAD (coronary artery disease) Heart disease Hypertension Myocardial infarction Thyroid disorder Uncle CAD (coronary artery disease) Heart disease Hypertension Myocardial infarction Grandmother CAD (coronary artery disease) Heart disease Hypertension Sudden cardiac Myocardial infarction Mother Diabetes Sister Thyroid disorder Social History housing: house number of children: 4 current occupational status: employed current occupation: [employer] current occupational exposures/hazards: No Smoking Status: Former smoker how long ago did patient quit smokin second hand exposure: No alcohol intake: current details: 2-3 x per week 2-3 vodka substance use type: does not use well-balanced diet: rarely or never caffeine: Yes eating out: 4 or more times/week during the past year weight has: increased > 10 lbs what type of physical activity do you participate in: none HPI HPI (General) HPI HPI: DERIK VOSS, is a 57 M who presents to the office today for Office Meds triamcinolone acetonide Performing Provider: FREDDY Rubalcava Administered by: Landy Sharif on 01/11/18 19:54 Dose Route Admin Location Lot Number Expiration Date [facility] Hydraulic Plumber 60 mg IM right butt [id number] 06/15/19 [address]-8 AMNEAL PHARMACE Assessment AND Plan Orders Orders: Medications Discontinued: triamcinolone acetonide Discontinued [id number] mg (1.5 mL) IM ONCE Z91.09 Landy Sharif : Office Medication has been Documented as gi valentin 01/11/182048 <Electronically signed by Kala HAYES> Date Kala Connolly [employer] SUPERVISOR-C CC: PROLACTIN Collected: 12/06/2017 Status: F Source: [place] 12:51 PM SYSTEM REPOSITORY TYPE CODE TESTS RESULT OUT OF RANGE REFERENCE UNITS LAB 3PRLA 3.7-17.9 ng/mL Normal Prolactin 5.9 Performed By: #### PRLA3 #### [facility] [address] [address] #### LH3 #### [facility] [address] [place] [address] LEUTINIZING HORMONE Collected: 12/06/2017 Status: F Source: [place] 12:51 PM SYSTEM REPOSITORY TYPE CODE TESTS RESULT OUT OF REFERENCE UNITS RANGE LAB 3LH m[IU]/mL Luetinizing Hormone 3.4 Result Comment: Females Only: Normal Follicular Phase ...... 2.6 ? 12.1 Normal Mid-Cycle Peak ........ 27.3 ? 96.9 Normal Luteal Phase .......... 0.8 ? 15.5 Post-menopausal .............. 13.1 ? 86.5 Normal Male: 1.5 - 9.4 mIU/ml Performed By: #### PRLA3 #### [facility] [address] [place] [id number] #### LH3 #### [facility] [address] [place] [address] TESTO,FREE/TOTAL-MALE Collected: Status: F Source: [facility] 12/06/2017 12:51 PM HEALTH SYSTEM REPOSITORY TYPE CODE TESTS RESULT OUT OF REFERENCE UNITS RANGE LAB SHBGM 11-80 nmol/L SHBG 35 Result Comment: REFERENCE INTERVAL: Sex Hormone Binding Globulin Access complete set of age- and/or gender-specific reference intervals for this test in the [facility] ([facility]). LAB TFTMR 300-890 ng/dL Testosterone Low 179 Result Comment: REFERENCE INTERVAL: Testosterone, Adult Male Access complete set of age- and/or gender-specific reference intervals for this test in the [facility] ([facility]). LAB TFMC 47-244 pg/mL Testosterone, Free Low Calc 30 Result Comment: INTERPRETIVE INFORMATION: Testosterone, Free Tim Stage IV 35 - 169 pg/mL Tim Stage V 41 - 239 pg/mL The concentration of Free Testosterone is derived from a mathematical expression based on the constant for the binding of testosterone to Sex Hormone Binding Globulin (SHBG). Access complete set of age- and/or gender-specific reference intervals for this test in the [facility] ([facility]). LAB TCPT2 1.6-2.9 % Testosterone, % Free 1.7 Result Comment: Performed by [facility], [address] [place] [id number] [email or web address], Timoteo Shah MD - Lab. Director Performed By: #### TFTMO #### The performing lab is in the report. OFFICE VISIT Observed: 10/13/2017 Status: F Source: [place] 3:03 PM [facility] [address] [address] OFFICE VISIT Date of Service: 10/05/17 MR#: [id number] Acct: [id number] Name: DERIK VOSS Rep #: [id number] : 1960 Provider: Kori White Age/Sex: 57/M Location: [facility] Status: Signed Intake Vital Signs10/05/17 Height 5 ft 11.75 in 10/05/17 Weight: 248 lb Eye Acuity Color Blind - Red: No Color Blind - Green: No Intake Visit Reasons: UPPER RESP INFECTION Chief Complaint: productive cough in the am Accompanied by: self Is patient in pain?: No Allergies No Known Allergies Allergy (Verified 10/05/17 18:13) Medications aspirin 81 mg chewable tablet 81 mg PO QDAY 10/05/17 [History Confirmed 10/05/17] atorvastatin 20 mg tablet 20 mg PO QDAY 10/05/17 [History Confirmed 10/05/17] lisinopril 10 mg tablet 10 mg PO QDAY 10/05/17 [History Confirmed 10/05/17] PFSH Medical History Hypercholesterolemia (Acute) Normal cardiac stress test (Acute) Hypertension (Chronic) Surgical History H/O cardiac catheterization (Acute) Hx of cholecystectomy (Acute) Hx of vasectomy (Acute) Family History Father CAD (coronary artery disease) Diabetes Heart disease Hypertension Myocardial infarction Grandfather CAD (coronary artery disease) Cancer Heart disease Hypertension Aunt CAD (coronary artery disease) Heart disease Hypertension Myocardial infarction Sudden cardiac Brother CAD (coronary artery disease) Heart disease Hypertension Myocardial infarction Thyroid disorder Uncle CAD (coronary artery disease) Heart disease Hypertension Myocardial infarction Grandmother CAD (coronary artery disease) Heart disease Hypertension Sudden cardiac Myocardial infarction Mother Diabetes Sister Thyroid disorder Social History housing: house number of children: 4 current occupational status: employed current occupation: [employer] current occupational exposures/hazards: No Smoking Status: Former smoker how long ago did patient quit smokin second hand exposure: No alcohol intake: current details: 2-3 x per week 2-3 vodka substance use type: does not use well-balanced diet: rarely or never caffeine: Yes eating out: 4 or more times/week during the past year weight has: increased > 10 lbs what type of physical activity do you participate in: none HPI HPI (General) HPI Chief Complaint: productive cough in the am HPI: DERIK VOSS, is a 57 M who presents to the office today for sinus congestion, coughing up phlegm clear in the morning. Pressure in his eyes, rhinorrhea (clear), dry crusty matting in eyes in the morning, denies headaches or sore throat. Denies fever or chills, no nausea or vomiting. Has been taking mucinex D and flonase and zyrtec for 3 weeks, but still symptoms linger. In the morning with hot shower, is the best his sinuses clear and few hour after. Cutting the grass made it worse last night. Treated 3 weeks ago for bronchitis, coughing is 80% better. Five weeks ago, out working in yard, felt fluttering in his heart, dizzy, light headed, checked bp, it was elevated and heart beat irregular, went to ER. EKG and blood work which was normal. Followed up with bone drier and just completed two week heart monitor, waiting on results. ROS Const Constitutional: Positive for decreased energy and fatigue; no chills, fever(s), night sweats, headache(s), excessive sweating, abnormal sleep pattern or change in appetite Eyes Eyes: No blurry vision or change in vision ENT ENT: Positive for ear pressure (R ear), nasal congestion, sinus pain, sinus pressure, nasal discharge and post nasal drip; no hearing loss, ear pain, tinnitus, dizziness/vertigo, headache(s), throat swelling, difficulty swallowing, abnormal hearing, lip swelling or tongue swelling Resp Respiratory: Positive for cough, chest congestion and excessive phlegm production; no shortness of breath Cardio Cardiology: No chest pain at rest, chest pain with exertion, excessive sweating or dyspnea on exertion Gastro GI: No abdominal pain, No change in stool character, No Difficulty Swallowing Genitourinary: No difficulty urinating Musc Musculoskeletal: No abnormal walking or back pain Skin Skin: Positive for dry skin and itching; no lesions or rash Neuro Neurology: No headache(s), abnormal walking, abnormal speech, abnormal hearing, abnormal movements or lack of coordination Psych Psychiatric: No abnormal sleep pattern, No change in appetite, Positive for depression (managed), Positive for anxiety, No Thoughts of harming yourself/Others Endo Endo: Yes fatigue, No excessive sweating, No cold intolerance, No heat intolerance, No increased hunger, No increased urine leakage, No increased thirst/drinking, No nervousness Aller/Imm Allergy/Immunologic: Positive for itchy eyes and seasonal allergy symptoms; no throat swelling, lip swelling, tongue swelling or hives Parminder/Lymp Hematologic/Lymphatic: No easy bleeding, easy bruising or enlarged lymph nodes Exam Const Constitutional: Yes cooperative, Yes healthy appearing, Yes comfortable, Yes no acute distress, Yes well developed Nutritional Appearance: Yes average body habitus and well nourished Orientation: Yes alert and oriented x3 HENMT Teeth and Gingiva: Yes dentition normal Throat: Yes uvula midline, Yes tonsils 2+ long-term between tonsils an uvula, Yes other (post nasal drip) Neck Neck: normal visual inspection, full ROM, no lymphadenopathy, trachea midline Neck Mass: No Neck mass Eyes General: Yes appearance normal, both eyes and all related structures Eyelid: Yes eyelids normal Conjunctivae: Yes conjunctivae normal Sclera: Yes sclerae normal Chest Chest palpation AND inspection: Yes normal inspection of the chest Breast Inspection: Yes normal inspection of the breasts Resp Effort AND Inspection: Yes normal respiratory effort and able to speak in complete sentences Auscultation: Yes clear to auscultation bilaterally Cardio Palpitation: Yes normal PMI Rate: Yes regular rate Rhythm: Yes regular rhythm Heart Sounds: Yes S1 normal and S2 normal Pulses: Yes radial pulses present and brachial pulses present GI Inspection: Yes normal to inspection General: Yes bladder normal to inspection Musc Thoracic/Lumbar Spine: Yes thoracic and lumbar spine normal to inspection Skin General: no rashes or lesions noted Lesions: Yes no lesions Rash: Yes no rashes Extrem General: Yes full ROM, normal to inspection, normal gait and normal capillary refill Neuro General: Yes alert, oriented x3, CN's II-XI intact bilaterally and tone normal Cranial Nerves: Yes CN's II-XI intact bilaterally Cognition: Yes normal cognition Speech: Yes speech normal Gait: Yes normal gait Motor: muscle tone normal throughout Sensory Exam: Yes no sensory deficits noted Psych Appearance: Positive grossly normal Mood: Positive congruent mood Affect: Positive normal affect Speech and Movement: Yes speech and movement normal Attitude: Yes cooperative Thought Process: Yes normal Thought Content: Yes normal Judgment: Yes judgment good Assessment AND Plan 1. Acute frontal sinusitis, recurrence not specified J01.10 Plan Augmentin 875 mg one by mouth every 12 hours twice daily for 10 days probiotic one pill by mouth 2-3 hours after antibiotic once daily for 4 weeks continue flonase and zyrtec Patient Instructions Augmentin 875 mg one by mouth every 12 hours twice daily for 10 days probiotic one pill by mouth 2-3 hours after antibiotic once daily for 4 weeks continue flonase and zyrtec Discussed with patient, if no better by next week after completing antibiotics, can come in for kenalog injection signed authorization for records and labwork, EKG from ER visit will follow up for physical 2. Seasonal allergies J30.2 3. Post-nasal drip R09.82 10/13/17 1503 <Electronically signed by Kori HAYES> Date Kori HAYES CC: OFFICE VISIT REPORT Observed: 10/12/2017 Status: F Source: [place] 1:00 PM [facility] [address] [place] [address] OFFICE VISIT Date of Service: 10/11/17 MR#: [id number] Acct: [id number] Patient: ANNEARLETHDERIK Rep #: [id number] : 1960 Provider: David Morin RN Age/Sex: 57/M Location: [facility] Status: Signed Intake Intake Visit Reasons: KENOLOG INJECTION Chief Complaint: productive cough in the am Allergies No Known Allergies Allergy (Verified 10/05/17 18:13) Medications aspirin 81 mg chewable tablet 81 mg PO QDAY 10/05/17 [History Confirmed 10/05/17] atorvastatin 20 mg tablet 20 mg PO QDAY 10/05/17 [History Confirmed 10/05/17] lisinopril 10 mg tablet 10 mg PO QDAY 10/05/17 [History Confirmed 10/05/17] Office Meds triamcinolone acetonide Performing Provider: FREDDY Rubalcava Administered by: Kayla Mccann on 10/11/17 18:03 Dose Route Admin Location Lot Number Expiration Date NDC Hydraulic Plumber 60 mg IM R Hip [id number] 05/13/19 [address]-2 [employer] Assessment AND Plan Orders Orders: Medications Discontinued: triamcinolone acetonide Discontinued Reason: 60 mg (1.5 mL) IM ONCE Z91.09 Kayla Mccann Office Medication has been Documented as given 10/12/17 1300 <Electronically signed by Kala HAYES> Date Kala HAYES Cosigner Signature: Date (if applicable) CC: ALLERGIES ALLERGIES DATE TYPE / CODE NAME / CODE REACTION SEVERITY SOURCE 10/05/2017 Drug No Known Unknown [facility] Allergy/4160 Allergies/F00 Hospital [address](SNOMED 4666885(RXNOR Repository CT) M) ENCOUNTERS ENCOUNTERS ADMIT/DISCHARGE ACCOUNT NUMBER ADMITTING ENCOUNTER LOCATION SOURCE CLASS 06/02/2018 [id number] [facility] ding:[facility]SPEC Repository 04/02/2018 [id number] [facility] ding:[facility] Repository 02/27/2018 [id number] [place] [facility] ding:LABSPEC Repository 01/17/2018 [id number] [facility] Repository 12/06/2017 [id number] [facility] Repository 09/08/2017 [id number] Ambulatory [facility] Repository 09/02/2017 [id number] [facility] EDRoom: System [id number]: Repository [id number] PAYERS PAYERS ENCOUNTER GUARANTOR PAYER SUBSCRIBER SOURCE 06/02/2018 DERIK [id number] Primary DERIK MCKNIGHTB: Kamron RUFFNER Insurance:[facility] [id number]: Hospital [id number]: 330 [id number] Repository [phone] () Date:[id number] [place] [id number]: 06/02/2018 Secondary NOT GIVENUNK Kamron Insurance:SELF PAY [facility] Hospital Number: Effective Repository Date:2018-06-02 04/02/2018 DERIK [id number] Primary DERIK MCKNIGHTB: Kamron RUFFNER Insurance:[facility] [id number] [place] [facility] [id number]: (330 [id number] Repository [phone] () Date:[id number] [address] [place] [id number]: 04/02/2018 Secondary NOT GIVENUNK Kamrno Insurance:SELF PAY [facility] Hospital Number: Effective Repository Date:2018-03-31 02/27/2018 DERIK [id number] Primary DERIK MCKNIGHTB: [place] RUFFNER Insurance:[facility] [id number] [facility] Hospital [id number]: 330 [id number] Repository [phone] () Date:[id number] [address] [place] [phone]: 02/27/2018 Secondary NOT GIVENUNK Kamron Insurance:SELF PAY [facility] Number: Effective Repository Date:2018-02-27 01/17/2018 Derik Fowler [facility] Derik [facility] ZumackDOB: Insurance:[facility] ZumackDOB: System licy Number: [id number] Repository [place] Effective Date: [place] [address]Eyh: (HP) 12/06/2017 Derik Fowler [facility] Derik [facility] ZumackDOB: Insurance:[facility] ZumackDOB: System licy Number: [id number] Repository [place] Effective Date: [place] [address]Mmu: (HP) 09/08/2017 Derik Fowler [facility] Derik [facility] ZumackDOB: Insurance:[employer] ZumackDOB: System licy Number: [id number] Repository [place] Effective Date: [place] [address]Lli: (HP) 09/02/2017 Derik Fowler [facility] Derik [facility] ZumackDOB: Insurance:[facility] ZumackDOB: System licy Number: [id number] Repository [place] Effective Date: [place] [address]Vdo: (HP)
== END ==
PROVIDERS: Referring Provider Nurse Practitioner; Visit Provider Nurse Practitioner
DX: E29.1 Testicular hypofunction (principal)
CPT/HCPCS: 84153; 84402; 85025

== ENCOUNTER → 2018-08-11 21:19 | Outpatient (CLI) | payer OTHER, SELFPAY ==
[2018-08-11 10:13] VITALS: BMI 30.9
[2018-08-11 21:38] LABS: Absolute Lymphocyte Count 1.35 X10^3/ul (0.83-4.51); Absolute Neutrophil Count 4.2 X10^3/uL (2.0-7.7); Basophil# 0.01 X10^3/uL; Basophil% 0.2 % (0-1); Eosinophil# 0.04 X10^3/uL; Eosinophils% 0.7 % (0-5); Hematocrit 52.5 % (40-54); Lymphocyte # 1.35 X10^3/ul (4.0); Lymphocyte % 22.2 % (19-41); Mean Corp Hgb Conc 34.9 g/gl (32-36); Mean Corpuscular Hgb 33.5 pg (27.0-32.0); Mean Platelet Vol. 11.4 fl (6.2-12.0); Monocyte# 0.47 X10^3/uL; Monocyte% 7.7 % (0-10); Platelet Count 161 K/mm3 (150-450); RBC Distribution Width CV 13.5 % (11.6-14.6); RBC Distribution Width SD 47.3 fl (35.1-43.9); Red Blood Count 5.47 M/mm3 (4.6-6.2); White Blood Count 6.1 K/mm3 (4.4-11.0)
[2018-08-11 21:43] LABS: Hemoglobin 18.3 g/dl (13.0-16.5); POSITIVE COUNT NO; POSITIVE DIFFERENTIAL NO; POSITIVE MORPHOLOGY NO
[2018-08-11 21:52] LABS: PSA,Total- Diagnostic 5.07 ng/mL (0.0-4.0)
== END ==
PROVIDERS: Visit Provider Nurse Practitioner
DX: R79.89 Other specified abnormal findings of blood chemistry (principal)
CPT/HCPCS: 84153; 84403; 85025

== ENCOUNTER → 2018-09-11 | Outpatient (CLI) | payer OTHER, SELFPAY ==
[2018-08-14 15:50] VITALS: BMI 30.9
[2018-09-12 00:44] LABS: PSA,Total- Diagnostic 4.39 ng/mL (0.0-4.0)
== END | disposition home or self-care (01) ==
LOC: OLS.AHF 23:42 → LABSPEC 23:51
PROVIDERS: Referring Provider Nurse Practitioner; Visit Provider Nurse Practitioner
DX: R97.20 Elevated prostate specific antigen [PSA] (principal)
CPT/HCPCS: 84153

== ENCOUNTER → 2018-10-03 | Outpatient (CLI) | payer OTHER, SELFPAY ==
[2018-10-03 18:33] VITALS: BMI 28.3
[2018-10-04 01:29] LABS: PSA,Total- Diagnostic 4.21 ng/mL (0.0-4.0)
== END | disposition home or self-care (01) ==
PROVIDERS: Family Provider Nurse Practitioner; PCP Nurse Practitioner; Visit Provider Nurse Practitioner
DX: R97.20 Elevated prostate specific antigen [PSA] (principal)
CPT/HCPCS: 84153

== ENCOUNTER → 2018-11-07 | Outpatient (CLI) | payer OTHER, SELFPAY ==
[2018-10-03 18:33] VITALS: BMI 28.3
[2018-11-07 22:13] LABS: PSA,Total- Diagnostic 9.27 ng/mL (0.0-4.0)
== END | disposition home or self-care (01) ==
PROVIDERS: Family Provider Nurse Practitioner; PCP Nurse Practitioner; Referring Provider Nurse Practitioner; Visit Provider Nurse Practitioner
DX: E29.1 Testicular hypofunction (principal)
CPT/HCPCS: 84153

== ENCOUNTER → 2020-03-31 | Outpatient (CLI) | payer OTHER, SELFPAY ==
[2020-03-31 20:36] VITALS: BMI 30.6
[2020-03-31 22:59] LABS: HIV - WCH Non-Reactive (Nonreactive)
[2020-03-31 23:47] LABS: Chlamydia Trachomatis by PCR Negative (Negative); Neisserai gonorrhoeae by PCR Negative (Negative); Probe Check PASS; Sample Adequacy Control PASS; Specimen Processing Control PASS
[2020-04-02 02:51] LABS: Rapid Plasmin Reagin (RPR) NONREACTIVE (NONREACTIVE)
== END | disposition home or self-care (01) ==
PROVIDERS: PCP Nurse Practitioner; Referring Provider Nurse Practitioner; Visit Provider Nurse Practitioner
DX: Z20.2 Contact with and (suspected) exposure to infections with a predominantly sexual mode of transmission (principal)
CPT/HCPCS: 86592; 86703; 87491; 87591